=== PATIENT | female | born 1950 | race Caucasian/White ===

== ENCOUNTER 2016-11-06 17:54 | Emergency (ER) | payer MEDICARE ==
[~2016-11-06] VITALS: Ht 170.2 cm; Wt 56.2 kg
[2016-11-06] MEDS ORDERED: OXYcodone/APAP 5/325MG TABLET PO ONE (20:00)
[2016-11-06] MEDS ORDERED: OXYcodone/APAP 5/325MG TABLET ONE (20:04)
[2016-11-06 23:05] VITALS: BP 128/68
== END 2016-11-06 23:10 | disposition home or self-care (01) ==
LOC: ED 23:04
DX: S42.411A Displaced simple supracondylar fracture without intercondylar fracture of right humerus, initial encounter for closed fracture (principal); W01.0XXA Fall on same level from slipping, tripping and stumbling without subsequent striking against object, initial encounter; Y93.89 Activity, other specified; Y92.830 Public park as the place of occurrence of the external cause; Y99.9 Unspecified external cause status
CPT/HCPCS: 29105; 99284

== ENCOUNTER → 2017-03-03 | Outpatient (CLI) | payer MEDICARE ==
[~2017-03-03] MED LIST: LIDOCAINE 2%, 20ML ONE
== END | disposition home or self-care (01) ==
LOC: RAD 09:43
PROVIDERS: ATTEND Family Medicine
DX: R18.8 Other ascites (principal)
CPT/HCPCS: 49083; 88112; 88305; J3490